=== PATIENT | female | born 1980 | race Caucasian/White ===

== ENCOUNTER 2018-02-18 15:22 | Emergency (ER) | payer SELFPAY ==
--- NOTE | 2018-02-18 17:19 | EDPHY ---
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 She has been experiencing this for the last 5-6 days. Underwent breast augmentation years ago. She has also been experiencing intermittent fever. She is not taking any medication for other fever or pain. She has not noticed any changes in the skin of her breasts. REVIEW OF SYSTEMS: A ten system review of systems was performed and is negative with the exception of the items mentioned in the HPI. Past medical history: Breast augmentation Past surgical history: Family history: Social history: History of IV drug abuse, currently sober. She smokes cigarettes daily. No alcohol use. She is living in a supervised setting. General Appearance: Alert. Vital signs reviewed. Afebrile. Eyes: Pupils equal and round, no conjunctival injection, no discharge. Anicteric. Thorax: Bilateral breast exam is normal. No masses. No nipple discharge. No asymmetry. No erythema or warmth of the skin. Lymph: No axillary lymphadenopathy. Respiratory: Lungs are clear to auscultation; no wheezes, rales, or rhonchi. Cardiovascular: Regular rate and rhythm; no murmur, rub, or gallop. Gastrointestinal: Abdomen is soft and nontender, no masses or organomegaly, bowel sounds normal. Skin: Warm and dry, no rashes on exposed skin, normal color. Back: Nontender to palpation over the thoracolumbar spine. No CVAT. Extremities: No lower extremity edema, no calf tenderness or swelling. Neurological: Alert and oriented. Moving all four extremities easily and equally. Psychiatric: Normal affect. - Personal History LMP (Females 10-55): 15-21 Days Ago Current Tetanus Diphtheria and Acellular Pertussis (TDAP): Yes Tetanus Vaccine Date: within 10 years - Medical/Surgical History Hx Asthma: Yes Hx Chronic Respiratory Disease: No Hx Diabetes: No Hx Cardiac Disease: No Hx Renal Disease: No Hx Cirrhosis: No Hx Alcoholism: No Hx HIV/AIDS: No Hx Splenectomy or Spleen Trauma: No Other PMH: Breast augmentation 1997, c section, anxiety, depression, ovarian cysts, heroin addiction last use 10/2017 - Social History Smoking Status: Current every day smoker Constitutional: Initial Vital Signs Temperature (C) 37.1 C 02/18/18 15:30 Heart Rate 70 02/18/18 15:30 Respiratory Rate 16 02/18/18 15:30 Blood Pressure 101/67 02/18/18 15:30 O2 Sat (%) 95 02/18/18 15:30 O2 Delivery Mode Room Air Allergies/Adverse Reactions: No Known Allergies Allergy (Verified 02/18/18 15:30) Home Medications: Medication Instructions Recorded Abilify 02/18/18 Albuterol 02/18/18 Clonidine 02/18/18 Cyproheptadine HCl 02/18/18 Fluoxetine HCl 02/18/18 Hydroxyzine HCl 02/18/18 Propranolol HCl 02/18/18 Trazodone HCl 02/18/18 Medical Decision Making - Data Points Point of Care Test Results: Urine Collection Date 02/18/18 Collection Time 16:50 HCG Results Negative Urine Dip Collection Date 02/18/18 Collection Time 16:50 Specific [place] (1.002-1.030) 1.015 PH (5.0-7.5) 6.5 Leukocytes (Negative) Trace Nitrites (Negative) Negative Protein (Negative) Negative Glucose (Negative) Negative Ketones (Negative) Negative Urobilnogen (0.2-1.0 EU) 0.2 Bilirubin (Negative) Negative Blood (Negative) Negative Departure - Departure Disposition: Home, Routine, Self-Care Clinical Impression: Fever Condition: Good Instructions: Fever in Adults (ED) Additional Instructions: I do not know what has been causing you to have breast pain and fever. I am giving you information about treating a fever. You should watch carefully for any other signs or symptoms. If you have any new or concerning symptoms you should be re-evaluated. Adult Pain & Fever Control: We recommend Acetaminophen (Tylenol) and Ibuprofen (Motrin,Advil) for pain and fever control. When fever is high or pain severe, both drugs can be used at the same time, but at different intervals. Please note the time differences. Your dose is: Acetaminophen 650mg every 4 to 6 hours Ibuprofen 400mg every 6 hours with food OR Note: do not take Acetaminophen with Hydrocodone (Vicodin, Lortab) or Oycodone (Percocet). These medications also contain Acetaminophen. No more than 3000mg of Acetaminophen should be taken in 24 hours (for an adult). Referrals: Chester Munoz MD [Medical Doctor] - As per Instructions
[2018-02-18 18:18] VITALS: BP 100/66
== END 2018-02-18 18:25 | disposition home or self-care (01) ==
LOC: CED 15:22
DX: R50.9 Fever, unspecified (principal); N64.4 Mastodynia; F41.9 Anxiety disorder, unspecified; F32.9 Major depressive disorder, single episode, unspecified